=== PATIENT | female | born 1970 | race Caucasian/White ===

== ENCOUNTER → 2018-08-23 | Outpatient (CLI) | payer OTHER ==
--- NOTE | 2018-08-23 17:12 | RAD ---
LUMBAR SPINE 2-3V History: Back pain into the right leg Comparison: None. Findings: 2 views of the lumbar spine are submitted. There is mild levoscoliosis centered upon the lumbar spine. Lumbar vertebral body stature and AP alignment are overall maintained. There is multilevel facet degenerative change. There is mild degenerative disc disease at L3-4. There is atherosclerotic calcification of the abdominal aorta. Impression: 1. There is mild lumbar levoscoliosis. There is mild degenerative disc disease L3-4. There is multilevel facet degenerative change. Electronically signed by: Kingsley Shah MD (08/23/2018 5:09 PM) [id number]
== END | disposition home or self-care (01) ==
LOC: RAD 09:57
PROVIDERS: ATTEND Surgery
DX: M51.36 Other intervertebral disc degeneration, lumbar region (principal); M47.816 Spondylosis without myelopathy or radiculopathy, lumbar region; M41.86 Other forms of scoliosis, lumbar region; I70.0 Atherosclerosis of aorta
CPT/HCPCS: 72100